=== PATIENT | female | born 1930 | race Caucasian/White ===

== ENCOUNTER 2017-02-25 14:36 | Emergency (ER) | payer MEDICARE, BC, OTHER ==
[2017-02-25 14:46] VITALS: BP 108/68
--- NOTE | 2017-02-25 15:33 | RAD ---
HISTORY: Fall, subacute trauma COMPARISONS: None TECHNIQUE: Multiple contiguous axial CT scans were obtained of the head without intravenous contrast. FINDINGS: HEMORRHAGE/INFARCT: There is no hemorrhage or acute infarct. MASSES/SHIFT: There is no mass or shift. EXTRA-AXIAL SPACES: There are no extra-axial fluid collections. SULCI AND VENTRICLES: The sulci and ventricles are normal in size and position for the patient's stated age. CEREBRUM: There is mild hypoattenuation of the periventricular and subcortical white matter. BRAINSTEM: There are no focal parenchymal abnormalities. CEREBELLUM: There are no focal parenchymal abnormalities. VESSELS: The vessels are grossly normal. PARANASAL SINUSES: The paranasal sinuses are clear. ORBITS: The orbits are unremarkable. BONES AND SOFT TISSUE: There is soft tissue swelling along the left frontal scalp OTHER: None IMPRESSION: NO ACUTE INTRACRANIAL PATHOLOGY.
--- NOTE | 2017-02-25 15:37 | RAD ---
INDICATION: Trauma. COMPARISON: There are no prior studies available for comparison. TECHNIQUE: Contiguous axial sections were obtained from the skull base through the T2 vertebra. Images were reconstructed in the sagittal and coronal planes. FINDINGS: There is straightening of the cervical spine with loss of the normal cervical lordosis. No prevertebral soft tissue swelling or fracture is seen. At the C3-C4 level there is moderate posterior uncinate process spurring and hypertrophic changes within the facet joints which gives rise to mild spinal canal narrowing. There is mild neural foraminal narrowing on the right side and moderate neural foraminal narrowing on the left side. At the C4-C5 level there is moderate posterior uncinate process spurring which causes mild spinal canal narrowing. There is moderate neural foraminal narrowing on the right side and mild neural foraminal narrowing on the left side. There are moderate hypertrophic changes within the facet joints. At the C5-C6 level there is moderate posterior uncinate process spurring and hypertrophic changes within the facet joints. There is moderate spinal canal narrowing. There is mild spinal canal narrowing on the right side and moderate to severe spinal canal narrowing on the left side. At the C6-C7 level there is moderate posterior uncinate process spurring which causes mild to moderate spinal canal narrowing and moderate bilateral neural foraminal narrowing. IMPRESSION: 1. STRAIGHTENING OF THE CERVICAL SPINE, NO EVIDENCE FOR FRACTURE. 2. 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
--- NOTE | 2017-03-22 15:33 | UC ---
Kimberly Adame Rebecca, scribed for Bridgette Leonardo MD on 02/25/17 at 1512 . Head Injury HPI - HPI Summary HPI Summary: Pt is an 86 y/o F who presents to [facility] s/p head injury. At 0900 yesterday morning she fell on a slippery floor and hit her L temporal region on the ceramic floor. Son reports that immediately the region began swelling "like a growing tennis ball" which was alleviated by a cold compress. Today, she began experiencing a L black eye. Associated pain is moderate, ranked 4/10 and localized to the region of injury. Family reports she has been conversing clearly, eating and drinking well, walking well and acting normally. Denies LOC , nausea, neck pain, abd pain, diarrhea, memory loss. Takes Xarelto s/p pacemaker implantation 2 years ago. No PMHx DM. Discussed case with the pt's son and daughter while she was in imaging. - History Of Current Complaint Chief Complaint: UCHeadInjury Stated Complaint: FELL HEAD INJURY Time Seen by Provider: 02/25/17 14:52 Hx Obtained From: Patient, Family/Work Force Advisor - Son and daughter ?: No Onset/Duration: Still Present Severity Initially: Moderate Pain Intensity: 4 Pain Scale Used: 0-10 Numeric Character: Other - AChe Alleviating Factor(s): Other - Cold compress Associated Signs And Symptoms: Positive: Other - L temporal region swelling ( point of injury) and L black eye. Negative: LOC (Time In Secs./Mins/Hrs), LOC Duration Unknown, Neck Pain - Allergies/Home Medications Allergies/Adverse Reactions: Allergies Allergy/AdvReac Type Severity Reaction Status Date / Time Penicillins Allergy Rash Verified 05/31/15 10:07 Seasonal Allergies Allergy Mild Congestion Uncoded 05/31/15 10:07 PMH/Surg Hx/FS Hx/Imm Hx Previously Healthy: No - see hpi Cardiovascular History: Other Other Cardiovascular History: Hypotension GI/ History: Ulcer - Resolved - Surgical History Surgical History: Yes Surgery Procedure, Year, and Place: cataract 2011, pacer 2013 - Family History Known Family History: Positive: Cardiac Disease - Social History Lives: With Family Alcohol Use: None Substance Use Type: None Smoking Status (MU): Never Smoked Tobacco - Immunization History Most Recent Influenza Vaccination: 2014 Most Recent Tetanus Shot: Thinks 2012 Most Recent Pneumonia Vaccination: after the age of 65 Review of Systems Constitutional: Negative Skin: Other - L temporal region swelling (point of injury) Eyes: Other - L black eye ENT: Negative Respiratory: Negative Cardiovascular: Negative Gastrointestinal: Negative Genitourinary: Negative Motor: Negative Neurovascular: Negative Musculoskeletal: Negative Neurological: Negative Psychological: Negative All Other Systems Reviewed And Are Negative: Yes Physical Exam Triage Information Reviewed: Yes Appearance: Well-Nourished Vital Signs: Initial Vital Signs Temp 99.2 F 02/25/17 14:40 Pulse 68 02/25/17 14:40 Resp 18 02/25/17 14:40 BP 108/68 02/25/17 14:40 Pulse Ox 96 02/25/17 14:40 Vital Signs Reviewed: Yes Eye Exam: Normal Eyes: Positive: Conjunctiva Clear ENT Exam: Normal ENT: Positive: TMs normal Neck exam: Normal - + evidence djd Neck: Positive: Nontender Respiratory Exam: Normal Respiratory: Positive: Chest non-tender, Lungs clear, Normal breath sounds, No respiratory distress Cardiovascular Exam: Normal Cardiovascular: Positive: RRR, Pulses Normal, Brisk Capillary Refill Abdominal Exam: Normal Abdomen Description: Positive: Nontender Musculoskeletal Exam: Normal - moves all 4 ext's. Neurological Exam: Normal - grossly nonfocal. facial expressions symmetric. no c/o new p/d/w. Psychological Exam: Normal - conversing easily and appropriately Skin Exam: Normal - L frontal / forehead with + hematoma. No point pierre tenderness underlying identified. No laceration. - Additional Comments Appearance: Well-Nourished Eye Exam: Normal ENT Exam: Left ear is normal. R ear is garcias, but about 90% of the TM is obscured by cerumen. Neck: Normal, No adenopathy appreciated Respiratory Exam: Normal, no dyspnea, no tachypnea, normal respiratory rate, chest non-tender, Lungs clear, Normal breath sounds, No respiratory distress, No accessory muscle use Cardiovascular Exam: Normal Cardiovascular: Heart rate regular, good general skin color, good capillary refill, RRR, No Murmur, Pulses Normal - sitting up, Brisk Capillary Refill Abdominal Exam: Normal Abdomen Description: Nontender, No Organomegaly, Soft Bowel Sounds: Present Musculoskeletal Exam: Normal Musculoskeletal: Strength Intact, No CVA tenderness Neurological Exam: Normal: nonfocal, grossly intact Psychological Exam: Normal: conversing easily and appropriately Skin Exam: No visible or reported rash, Her L forehead, L maxilla and L frontal- temporal area significant for a purple blue-green ecchymosis. There is a hemotoma approximately 4 cm by 2 cm to the L forehead. Diagnostics - Radiology Brain CT Xray Interpretation: No Acute Changes - NO ACUTE INTRACRANIAL PATHOLOGY. Radiology Interpretation Completed By: Radiologist C-Spine CT Xray Interpretation: No Acute Changes - 1. STRAIGHTENING OF THE CERVICAL SPINE, NO EVIDENCE FOR FRACTURE. 2. 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 Radiology Interpretation Completed By: Radiologist Re-Evaluation - Re-Evaluation First Eval Re-Evaluation Time: 16:02 Comment: Patient is back from imagining. Is able to recount what happened. Pt denies bruising on the UEs. Denies hematuria and dark urine. Performed PE and discussed CT results. Answered questions to the family's and patient's satisfaction. Head Injury Course/Dx - Course Course Of Treatment: Reviewed CT brain and CT neck with pt. + degenerative changes c-spine. Reviewed coa / tx plan / need for f/u with pt and family. Questions answered as posed to the best of my ability. - Differential Dx/Diagnosis Provider Diagnoses: Head contusion Discharge - Discharge Plan Condition: Stable Disposition: HOME Patient Education Materials: Osteoarthritis (ED), Head Injury (ED), Contusion in Adults (ED), Hematoma (ED) Referrals: Johnnie Garcia MD [Primary Care Provider] - Additional Instructions: Please follow up with your primary care provider - if possible early this week. Seek immediate medical attention for worse or new problems in the meantime. The documentation as recorded by the Kimberly gardner Rebecca accurately reflects the service I personally performed and the decisions made by me, Bridgette Leonardo MD.
== END 2017-02-25 16:29 | disposition home or self-care (01) ==
LOC: UCEAST 14:36
DX: S00.83XA Contusion of other part of head, initial encounter (principal); W01.0XXA Fall on same level from slipping, tripping and stumbling without subsequent striking against object, initial encounter; Y93.9 Activity, unspecified; Y92.9 Unspecified place or not applicable; M47.812 Spondylosis without myelopathy or radiculopathy, cervical region; I95.9 Hypotension, unspecified; Z95.0 Presence of cardiac pacemaker; Z79.01 Long term (current) use of anticoagulants; Z88.0 Allergy status to penicillin
CPT/HCPCS: 70450; 72125; 99211; G0463